=== PATIENT | female | born 1985 | race Caucasian/White ===

== ENCOUNTER 2017-04-26 17:44 | Emergency (ER) | payer OTHER ==
[~2017-04-26] VITALS: Ht 165.1 cm; Wt 108.9 kg
[~2017-04-26 17:44] MED LIST: AMOXIL500 MG PO; FIORICET 50-301 EACH PO; HYDROCODONE BIT1 T11 PO; MOTRIN800 MG PO; PEPCID20 MG PO; VIBRAMYCIN100 MG PO; ZITHROMAX Z PA250 MG PO
[2017-04-26] MEDS ORDERED: NAPROSYN500 MG PO (17:56)
== END 2017-04-26 18:32 | disposition home or self-care (01) ==
LOC: ED 17:44
DX: S80.12XA Contusion of left lower leg, initial encounter (principal); R03.0 Elevated blood-pressure reading, without diagnosis of hypertension; F17.200 Nicotine dependence, unspecified, uncomplicated; Z90.49 Acquired absence of other specified parts of digestive tract; Z88.8 Allergy status to other drugs, medicaments and biological substances; W50.0XXA Accidental hit or strike by another person, initial encounter; Y93.68 Activity, volleyball (beach) (court); Y92.318 Other athletic court as the place of occurrence of the external cause; Y99.9 Unspecified external cause status

== ENCOUNTER 2017-10-25 02:56 | Emergency (ER) | payer OTHER ==
[~2017-10-25] VITALS: Ht 165.1 cm; Wt 111.1 kg
[~2017-10-25 02:56] MED LIST changes: +NAPROSYN500 MG PO
== END 2017-10-25 04:29 | disposition left against medical advice (07) ==
LOC: ED 02:56
DX: J11.1 Influenza due to unidentified influenza virus with other respiratory manifestations (principal); F17.200 Nicotine dependence, unspecified, uncomplicated; Z98.890 Other specified postprocedural states; Z88.8 Allergy status to other drugs, medicaments and biological substances